=== PATIENT | male | born 1945 | race Caucasian/White ===

== ENCOUNTER 2018-08-14 15:25 | Emergency (ER) | payer MEDICARE, OTHER ==
[~2018-08-14] VITALS: Ht 182.9 cm; Wt 88.6 kg
[2018-08-14 15:32] VITALS: BP 198/97
[2018-08-14 16:12] LABS: BASOPHILS # (AUTO) 0.1 X10'3 (0-0.2); BASOPHILS % (AUTO) 1.2 % (0-1); EOSINOPHILS # (AUTO) 0.3 X10'3 (0-0.9); EOSINOPHILS % (AUTO) 3.9 % (0-6); HEMATOCRIT 42.1 % (42.0-52.0); HEMOGLOBIN 14.3 g/dl (14.0-17.9); LYMPHOCYTES # (AUTO) 1.5 X10'3 (1.1-4.8); LYMPHOCYTES % (AUTO) 19.4 % (21-51); MEAN CORPUSCULAR HEMOGLOBIN 29.3 PG (27.0-31.0); MEAN CORPUSCULAR VOLUME 86.2 FL (78-98); MEAN PLATELET VOLUME 8.9 FL (7.4-10.4); MONOCYTES # (AUTO) 0.7 X10'3 (0-0.9); MONOCYTES % (AUTO) 8.8 % (2-12); NEUTROPHILS # (AUTO) 5.1 X10'3 (1.8-7.7); NEUTROPHILS % (AUTO) 66.7 % (42-75); PLATELET COUNT 175 X10'3 (140-440); RED BLOOD COUNT 4.89 X10'6 (4.70-6.10); RED CELL DISTRIBUTION WIDTH 13.4 % (11.5-14.5); WHITE BLOOD COUNT 7.7 X10'3 (4.5-11.0)
[2018-08-14 16:32] LABS: PARTIAL THROMBOPLASTIN TIME 24 SECONDS (22-32); PROTHROMBIN TIME 9.8 SECONDS (9.0-12.0)
[2018-08-14 17:12] LABS: ALANINE AMINOTRANSFERASE 80 U/L (12-78); ALBUMIN 3.6 G/DL (3.4-5.0); ALBUMIN/GLOBULIN RATIO 0.8 (1.1-1.5); ALKALINE PHOSPHATASE 129 IU/L (46-116); ANION GAP 10 (8-16); ASPARTATE AMINO TRANSFERASE 51 U/L (10-37); BILIRUBIN,TOTAL 0.5 MG/DL (0.1-1.0); BLOOD UREA NITROGEN 20 MG/DL (7-18); BUN/CREATININE RATIO 16.1 (5.4-32.0); CALCIUM 8.8 MG/DL (8.5-10.1); CHLORIDE 105 MMOL/L (99-107); CREATININE 1.24 MG/DL (0.60-1.10); GLUCOSE 114 MG/DL (70-104); POTASSIUM 4.3 MMOL/L (3.5-5.1); SODIUM 142 MMOL/L (135-145); TOTAL CARBON DIOXIDE 26.9 MMOL/L (24-32); eGFR 57 ML/MIN
[2018-08-14] MEDS ORDERED: LISI-600 PO (17:56)
[2018-08-14] MEDS ORDERED: HYDR25TA4 PO (17:56)
== END 2018-08-14 20:08 | disposition home or self-care (01) ==
LOC: ER 15:26
DX: I10 Essential (primary) hypertension (principal); R01.1 Cardiac murmur, unspecified; Z86.73 Personal history of transient ischemic attack (TIA), and cerebral infarction without residual deficits; Z79.899 Other long term (current) drug therapy; Z98.890 Other specified postprocedural states; Z95.4 Presence of other heart-valve replacement
CPT/HCPCS: 36415; 71046; 80053; 83880; 84484; 85025; 85610; 85730; 93005; 99284

== ENCOUNTER 2022-05-07 09:55 | Emergency (ER) | payer MEDICARE ==
[~2022-05-07] VITALS: Ht 182.9 cm; Wt 75.0 kg
[~2022-05-07 09:55] MED LIST: HYDR-4383 PO; HYDR25TA4 PO
[2022-05-07 10:00] VITALS: BP 130/90
[2022-05-07 10:30] LABS: CLARITY,URINE SLIGHTLY CLOUDY (Clear); COLOR,URINE YELLOW (Yellow); GLUCOSE, URINE NEGATIVE (Neg); KETONES,URINE NEGATIVE (Neg); LEUKOCYTE ESTERASE ,URINE NEGATIVE (Neg); NITRITES, URINE NEGATIVE (Neg); OCCULT BLOOD,URINE NEGATIVE (Neg); PH,URINE 5.5 (4.8-8.0); PROTEIN,URINE NEGATIVE (Neg); UROBILINOGEN,URINE 0.2 E.U/dL (0.2-1.0)
[2022-05-07 10:37] LABS: SQUAMOUS EPITHELIAL CELL,UR FEW /LPF (FEW); UA COLLECTION TYPE NON-SPECIFIED
[2022-05-07 10:38] LABS: BACTERIA,URINE FEW /HPF (Neg); HYALINE CASTS 0-3 /LPF (NEGATIVE); MUCUS STRANDS MANY /LPF (Neg); RBC,URINE 0-2 /HPF (0-2); SPERM FEW /HPF (NEGATIVE); WBC,URINE 0-4 /HPF (0-4)
[2022-05-07 11:01] LABS: HEMATOCRIT 36.6 % (42.0-52.0); HEMOGLOBIN 12.8 g/dl (14.0-17.9); MEAN CORPUSCULAR HEMOGLOBIN 29.5 PG (27.0-31.0); MEAN CORPUSCULAR HGB CONC 34.9 g/dL (33.0-36.5); MEAN CORPUSCULAR VOLUME 84.4 FL (78-98); RED BLOOD COUNT 4.34 X10'6 (4.70-6.10); WHITE BLOOD COUNT 8.2 X10'3 (4.5-11.0)
[2022-05-07 11:02] LABS: BASOPHILS # (AUTO) 0.1 X10'3 (0-0.2); BASOPHILS % (AUTO) 0.6 % (0-1); EOSINOPHILS # (AUTO) 0.2 X10'3 (0-0.9); EOSINOPHILS % (AUTO) 2.4 % (0-6); LYMPHOCYTES # (AUTO) 1.5 X10'3 (1.1-4.8); LYMPHOCYTES % (AUTO) 18.5 % (21-51); MEAN PLATELET VOLUME 7.7 FL (7.4-10.4); MONOCYTES # (AUTO) 0.8 X10'3 (0-0.9); MONOCYTES % (AUTO) 9.5 % (2-12); NEUTROPHILS # (AUTO) 5.6 X10'3 (1.8-7.7); PLATELET COUNT 174 X10'3 (140-440); RED CELL DISTRIBUTION WIDTH 14.1 % (11.5-14.5)
[2022-05-07 11:16] LABS: GLUCOSE 100 MG/DL (70-104)
[2022-05-07 11:17] LABS: ALANINE AMINOTRANSFERASE 33 U/L (12-78); ALBUMIN/GLOBULIN RATIO 1.1 (1.1-1.5); ALKALINE PHOSPHATASE 106 IU/L (46-116); ANION GAP 7 (8-16); ASPARTATE AMINO TRANSFERASE 29 U/L (10-37); BILIRUBIN,TOTAL 0.9 MG/DL (0.1-1.0); BLOOD UREA NITROGEN 20 MG/DL (7-18); BUN/CREATININE RATIO 23.3 (5.4-32.0); CALCIUM 9.1 MG/DL (8.5-10.1); CHLORIDE 104 MMOL/L (99-107); CREATININE 0.86 MG/DL (0.60-1.10); POTASSIUM 3.9 MMOL/L (3.5-5.1); SODIUM 141 MMOL/L (135-145); TOTAL PROTEIN 7.8 G/DL (6.4-8.2); eGFR 86 ML/MIN
== END 2022-05-07 12:07 | disposition home or self-care (01) ==
LOC: ER 09:56
DX: Z00.00 Encounter for general adult medical examination without abnormal findings (principal); I10 Essential (primary) hypertension
CPT/HCPCS: 36415; 80053; 81001; 85025; 99283

== ENCOUNTER 2023-02-17 14:28 | Emergency (ER) | payer MEDICARE ==
[~2023-02-17] VITALS: Ht 182.9 cm; Wt 82.7 kg
[2023-02-17 14:48] LABS: BASOPHILS # (AUTO) 0.1 X10'3 (0-0.2); BASOPHILS % (AUTO) 0.9 % (0-1); EOSINOPHILS # (AUTO) 0.2 X10'3 (0-0.9); EOSINOPHILS % (AUTO) 3.3 % (0-6); HEMATOCRIT 36.7 % (42.0-52.0); HEMOGLOBIN 11.9 g/dl (14.0-17.9); LYMPHOCYTES # (AUTO) 1.1 X10'3 (1.1-4.8); LYMPHOCYTES % (AUTO) 16.4 % (21-51); MEAN CORPUSCULAR HEMOGLOBIN 27.1 PG (27.0-31.0); MEAN CORPUSCULAR HGB CONC 32.5 g/dL (33.0-36.5); MEAN CORPUSCULAR VOLUME 83.2 FL (78-98); MEAN PLATELET VOLUME 8.2 FL (7.4-10.4); MONOCYTES # (AUTO) 0.6 X10'3 (0-0.9); NEUTROPHILS # (AUTO) 4.9 X10'3 (1.8-7.7); NEUTROPHILS % (AUTO) 70.4 % (42-75); PLATELET COUNT 155 X10'3 (140-440); RED BLOOD COUNT 4.41 X10'6 (4.70-6.10); RED CELL DISTRIBUTION WIDTH 15.6 % (11.5-14.5)
[2023-02-17 14:58] LABS: ALANINE AMINOTRANSFERASE 36 U/L (12-78); ALBUMIN 3.4 G/DL (3.4-5.0); ALBUMIN/GLOBULIN RATIO 0.9 (1.1-1.5); ALKALINE PHOSPHATASE 120 IU/L (46-116); ANION GAP 9 (8-16); ASPARTATE AMINO TRANSFERASE 26 U/L (10-37); BILIRUBIN,TOTAL 0.5 MG/DL (0.1-1.0); BLOOD UREA NITROGEN 21 MG/DL (7-18); BUN/CREATININE RATIO 21.6 (10.0-20.0); CALCIUM 8.3 MG/DL (8.5-10.1); CHLORIDE 108 MMOL/L (99-107); CREATININE 0.97 MG/DL (0.60-1.10); GLUCOSE 140 MG/DL (70-104); POTASSIUM 4.1 MMOL/L (3.5-5.1); SODIUM 142 MMOL/L (135-145); TOTAL CARBON DIOXIDE 25.5 MMOL/L (24-32); TOTAL PROTEIN 7.1 G/DL (6.4-8.2); eCRCL 70 ML/MIN; eGFR 75 ML/MIN
[2023-02-17 15:06] LABS: PRO BRAIN NATRIURETIC PEPTIDE 758 PG/ML (0-450)
[2023-02-17 15:48] VITALS: BP 184/90; RESP 13; O2SAT 99
[2023-02-17] MEDS ORDERED: naproxen 500mg tablet PO ONE (16:50)
[2023-02-17] MEDS ORDERED: HYDROcodone/acetaminophen 5mg/325mg tablet PO ONE (16:50)
[2023-02-17] MEDS ORDERED: LISI5TAB22 PO (17:08)
[2023-02-17] MEDS ORDERED: HYDR25TA4 PO (17:08)
[2023-02-17] MEDS ORDERED: lisinopril 10 MG tablet PO ONE (17:10)
[2023-02-17 17:21] VITALS: PULSE 60
== END 2023-02-17 16:00 | disposition home or self-care (01) ==
LOC: ER 14:28
DX: M25.512 Pain in left shoulder (principal); R07.89 Other chest pain; I10 Essential (primary) hypertension; M19.90 Unspecified osteoarthritis, unspecified site; I25.2 Old myocardial infarction; Z86.73 Personal history of transient ischemic attack (TIA), and cerebral infarction without residual deficits; Z72.89 Other problems related to lifestyle; Z79.899 Other long term (current) drug therapy
CPT/HCPCS: 36415; 71045; 73030; 80053; 83880; 84484; 85025; 93005; 99285

== ENCOUNTER 2023-02-18 12:57 | Emergency (ER) | payer MEDICARE ==
[~2023-02-18 12:57] MED LIST changes: +LISI5TAB22 PO
--- NOTE | 2023-02-18 13:02 | NUR ---
CALLED FOR PT NO ANSWER IN LOBBY WALKED OUTSIDE CALLED FOR PT NO ANSWER NO PERSONS NOTED WITHIN VISUAL FIELD OF MAIN ENTRANCE. SECURITY STATED PT LEFT IMMEDIATELY AFTER CHECK IN.
== END 2023-02-18 13:21 | disposition left against medical advice (07) ==
LOC: ER 12:57
DX: Z00.00 Encounter for general adult medical examination without abnormal findings (principal); Z53.21 Procedure and treatment not carried out due to patient leaving prior to being seen by health care provider

== ENCOUNTER 2023-04-12 11:13 | Inpatient (IN) | payer MEDICARE ==
[~2023-04-12] VITALS: Ht 182.9 cm; Wt 84.1 kg
--- NOTE | 2023-04-12 11:21 | NUR ---
EMS report given to Dr Godinez by this RN. Primary RN Danika howard.
[2023-04-12] MEDS ORDERED: normal saline 1000ML IV soln IVB ONE (11:25)
[2023-04-12] MEDS ORDERED: CefTRIAXone 2gm/D5W 50ml BAG 50 ML IV ONE (11:35)
[2023-04-12 12:03] LABS: BASOPHILS % (AUTO) 0.1 % (0-1); EOSINOPHILS % (AUTO) 0 % (0-6); HEMOGLOBIN 12.1 g/dl (14.0-17.9); LYMPHOCYTES # (AUTO) 0.3 X10'3 (1.1-4.8); LYMPHOCYTES % (AUTO) 2.5 % (21-51); MEAN CORPUSCULAR HEMOGLOBIN 28.3 PG (27.0-31.0); MEAN CORPUSCULAR HGB CONC 33.7 g/dL (33.0-36.5); MEAN CORPUSCULAR VOLUME 84.1 FL (78-98); MEAN PLATELET VOLUME 8.4 FL (7.4-10.4); MONOCYTES % (AUTO) 8.1 % (2-12); NEUTROPHILS # (AUTO) 10.5 X10'3 (1.8-7.7); NEUTROPHILS % (AUTO) 89.3 % (42-75); PLATELET COUNT 156 X10'3 (140-440); RED BLOOD COUNT 4.28 X10'6 (4.70-6.10); RED CELL DISTRIBUTION WIDTH 15.5 % (11.5-14.5); WHITE BLOOD COUNT 11.8 X10'3 (4.5-11.0)
[2023-04-12 12:19] LABS: ALANINE AMINOTRANSFERASE 47 U/L (12-78); ALBUMIN 2.7 G/DL (3.4-5.0); ALBUMIN/GLOBULIN RATIO 0.7 (1.1-1.5); ALKALINE PHOSPHATASE 56 IU/L (46-116); ANION GAP 8 (8-16); ASPARTATE AMINO TRANSFERASE 96 U/L (10-37); BILIRUBIN,TOTAL 2.4 MG/DL (0.1-1.0); BLOOD UREA NITROGEN 28 MG/DL (7-18); BUN/CREATININE RATIO 19.9 (10.0-20.0); CALCIUM 8.3 MG/DL (8.5-10.1); CHLORIDE 99 MMOL/L (99-107); CREATININE 1.41 MG/DL (0.60-1.10); GLUCOSE 114 MG/DL (70-104); POTASSIUM 3.6 MMOL/L (3.5-5.1); SODIUM 134 MMOL/L (135-145); TOTAL CARBON DIOXIDE 27.1 MMOL/L (24-32); TOTAL PROTEIN 6.6 G/DL (6.4-8.2); eCRCL 48 ML/MIN; eGFR 49 ML/MIN
[2023-04-12] MEDS ORDERED: LIDOcaine 2% 10ml TOPICAL JELLY (Urojet) TP ONE (14:45)
[2023-04-12] MEDS ORDERED: LidoCAINE 2% Topical Jelly 11mL syringe TOP ONE ×2 (14:50→15:05)
[2023-04-12] MEDS ORDERED: magnesium Cl slow-release 64mg tablet PO PRN (15:05)
[2023-04-12] MEDS ORDERED: dextrose 50%-water 50ml dispensing syringe IV PRN (15:05)
[2023-04-12] MEDS ORDERED: potassium Cl 40MEQ/1/2NS 520ml 520 ML IV PRN (15:05)
[2023-04-12] MEDS ORDERED: haloperidol 5mg tablet PO PRN (15:05)
[2023-04-12] MEDS ORDERED: ondansetron/PF 4mg/2ml inj IV PRN (15:05)
--- NOTE | 2023-04-12 15:20 | NUR ---
PT REQUESTING NOT TO HAVE HAYES CATHETER PLACED AT THIS TIME.
[2023-04-12 15:32] LABS: BILIRUBIN,URINE NEGATIVE (Neg); CLARITY,URINE CLOUDY (Clear); COLOR,URINE YELLOW (Yellow); GLUCOSE, URINE NEGATIVE (Neg); KETONES,URINE TRACE mg/dl (Neg); LEUKOCYTE ESTERASE ,URINE NEGATIVE (Neg); NITRITES, URINE NEGATIVE (Neg); OCCULT BLOOD,URINE MODERATE (Neg); PH,URINE 5.5 (4.8-8.0); PROTEIN,URINE 30 mg/dl (Neg)
[2023-04-12 15:35] LABS: UA COLLECTION TYPE URINAL
[2023-04-12 15:40] LABS: SQUAMOUS EPITHELIAL CELL,UR FEW /LPF (FEW)
[2023-04-12 15:41] LABS: BACTERIA,URINE 1+ /HPF (Neg); RBC,URINE 0-2 /HPF (0-2); WBC,URINE 0-4 /HPF (0-4)
[2023-04-12 15:42] LABS: AMORPHOUS URATES 2+
[2023-04-12] MEDS: normal saline 1000ml 1,000 ML IV SCH (16:22)
[2023-04-12] MEDS ORDERED: lisinopril 10 MG tablet PO ONE (18:45)
[2023-04-12] MEDS ORDERED: tamsulosin 0.4mg capsule PO SCH (18:45)
--- NOTE | 2023-04-12 18:45 | NUR ---
Dr. Cruz at bedside aware of BP 193/100, Temp of 101.6, and 110 HR. Verbal orders given.
[2023-04-12] MEDS: acetaminophen 325mg tablet PO PRN (18:46)
[2023-04-12] MEDS: tamsulosin 0.4mg capsule PO SCH (21:00)
[2023-04-12] MEDS: thiamine 100mg/ml 2ml inj. IV SCH (21:16)
[2023-04-13] MEDS: normal saline 1000ml 1,000 ML IV SCH ×3 (00:55→20:12)
[2023-04-13] MEDS: hydrALAZINE 25 MG tablet PO SCH ×4 (00:55→23:27)
[2023-04-13] MEDS: acetaminophen 325mg tablet PO PRN ×2 (01:05→17:23)
[2023-04-13 04:08] LABS: ALANINE AMINOTRANSFERASE 36 U/L (12-78); ALBUMIN 2.2 G/DL (3.4-5.0); ALBUMIN/GLOBULIN RATIO 0.6 (1.1-1.5); ALKALINE PHOSPHATASE 44 IU/L (46-116); ANION GAP 7 (8-16); ASPARTATE AMINO TRANSFERASE 58 U/L (10-37); BLOOD UREA NITROGEN 26 MG/DL (7-18); BUN/CREATININE RATIO 26.3 (10.0-20.0); CALCIUM 7.7 MG/DL (8.5-10.1); CHLORIDE 103 MMOL/L (99-107); CREATININE 0.99 MG/DL (0.60-1.10); GLUCOSE 103 MG/DL (70-104); SODIUM 134 MMOL/L (135-145); TOTAL CARBON DIOXIDE 24.1 MMOL/L (24-32); TOTAL PROTEIN 5.6 G/DL (6.4-8.2); eCRCL 69 ML/MIN; eGFR 73 ML/MIN
[2023-04-13 04:10] LABS: BASOPHILS % (AUTO) 0.3 % (0-1); EOSINOPHILS % (AUTO) 0.1 % (0-6); HEMATOCRIT 32.6 % (42.0-52.0); HEMOGLOBIN 11.1 g/dl (14.0-17.9); LYMPHOCYTES # (AUTO) 0.3 X10'3 (1.1-4.8); LYMPHOCYTES % (AUTO) 3.8 % (21-51); MEAN CORPUSCULAR HEMOGLOBIN 28.3 PG (27.0-31.0); MEAN CORPUSCULAR HGB CONC 34.2 g/dL (33.0-36.5); MEAN CORPUSCULAR VOLUME 82.7 FL (78-98); MEAN PLATELET VOLUME 8.2 FL (7.4-10.4); MONOCYTES # (AUTO) 0.6 X10'3 (0-0.9); MONOCYTES % (AUTO) 7.6 % (2-12); NEUTROPHILS # (AUTO) 6.7 X10'3 (1.8-7.7); NEUTROPHILS % (AUTO) 88.2 % (42-75); PLATELET COUNT 135 X10'3 (140-440); RED BLOOD COUNT 3.94 X10'6 (4.70-6.10); RED CELL DISTRIBUTION WIDTH 15.5 % (11.5-14.5); WHITE BLOOD COUNT 7.6 X10'3 (4.5-11.0)
[2023-04-13] MEDS: potassium Cl 20 mEq SR tablet PO PRN ×4 (04:48→17:24)
[2023-04-13] MEDS ORDERED: lisinopril 10 MG tablet PO SCH (08:00)
[2023-04-13] MEDS: CefTRIAXone/D5W-Rocephin 1gm 50 ML IV SCH (09:09)
[2023-04-13] MEDS: thiamine 100mg/ml 2ml inj. IV SCH ×3 (09:09→20:51)
[2023-04-13] MEDS: enoxaparin 40mg/0.4ml syringe SUBCUT SCH (09:12)
--- NOTE | 2023-04-13 09:34 | NUR ---
Report given to CELIA Tovar, pt assigned room 9762Y
[2023-04-13 10:30] VITALS: BP 127/71; PULSE 86; RESP 16; TEMP 99.7; O2SAT 96
[2023-04-13] MEDS: folic acid 1mg/0.2ml inj IV SCH (10:38)
[2023-04-13 12:31] VITALS: BP 147/74; PULSE 94; RESP 22; TEMP 99.9; O2SAT 95
[2023-04-13 12:40] VITALS: RESP 26; O2SAT 95
--- NOTE | 2023-04-13 13:18 | NUR ---
Patient states last BM was 04/12, bout of fecal incontinence in ED. Addendum: 04/13/23 at 1331 by Jasvir ARRIETA Amended: Links added.
--- NOTE | 2023-04-13 14:39 | NUR ---
Patient ate 100% of /2 cup keny denton salad. 16 gm carbohydrates in salad. Addendum: 04/13/23 at 1440 by Jasvir ARRIETA Amended: Links added.
[2023-04-13] MEDS ORDERED: NO HOME MEDS (15:30)
[2023-04-13 18:00] VITALS: BP 182/85; PULSE 111; RESP 20; TEMP 100.6; O2SAT 91
[2023-04-13] MEDS ORDERED: hydrALAZINE 20mg/ml inj. IV PRN (19:45)
[2023-04-13] MEDS: tamsulosin 0.4mg capsule PO SCH (20:05)
[2023-04-13] MEDS: lisinopril 10 MG tablet PO SCH ×2 (20:05→20:06)
[2023-04-13 22:07] VITALS: BP 138/78; PULSE 89; RESP 16; TEMP 98.6; O2SAT 95
--- NOTE | 2023-04-14 06:27 | NUR ---
Problems reprioritized. Patient report given, questions answered & plan of care reviewed with Ovi YANG. Addendum: 04/14/23 at 0627 by Madisyn Gong RN Amended: Links added.
--- NOTE | 2023-04-14 06:28 | NUR ---
Patient in room ORTHO 4009. I have received report from viola YANG and had the opportunity to ask questions and assume patient care.
[2023-04-14] MEDS: normal saline 1000ml 1,000 ML IV SCH ×2 (07:05→17:26)
[2023-04-14 07:41] LABS: BASOPHILS % (AUTO) 0.2 % (0-1); EOSINOPHILS % (AUTO) 0 % (0-6); HEMATOCRIT 33.6 % (42.0-52.0); HEMOGLOBIN 11.3 g/dl (14.0-17.9); LYMPHOCYTES # (AUTO) 0.4 X10'3 (1.1-4.8); LYMPHOCYTES % (AUTO) 6.1 % (21-51); MEAN CORPUSCULAR HEMOGLOBIN 28.3 PG (27.0-31.0); MEAN CORPUSCULAR HGB CONC 33.7 g/dL (33.0-36.5); MEAN CORPUSCULAR VOLUME 84.1 FL (78-98); MEAN PLATELET VOLUME 8.2 FL (7.4-10.4); MONOCYTES # (AUTO) 0.6 X10'3 (0-0.9); MONOCYTES % (AUTO) 8.6 % (2-12); NEUTROPHILS # (AUTO) 6.2 X10'3 (1.8-7.7); NEUTROPHILS % (AUTO) 85.1 % (42-75); PLATELET COUNT 138 X10'3 (140-440); RED BLOOD COUNT 3.99 X10'6 (4.70-6.10); RED CELL DISTRIBUTION WIDTH 15.5 % (11.5-14.5); WHITE BLOOD COUNT 7.3 X10'3 (4.5-11.0)
[2023-04-14 07:59] LABS: ALANINE AMINOTRANSFERASE 39 U/L (12-78); ALBUMIN/GLOBULIN RATIO 0.6 (1.1-1.5); ALKALINE PHOSPHATASE 44 IU/L (46-116); ANION GAP 7 (8-16); ASPARTATE AMINO TRANSFERASE 54 U/L (10-37); BILIRUBIN,TOTAL 0.8 MG/DL (0.1-1.0); BLOOD UREA NITROGEN 13 MG/DL (7-18); BUN/CREATININE RATIO 16.3 (10.0-20.0); CALCIUM 7.9 MG/DL (8.5-10.1); CHLORIDE 101 MMOL/L (99-107); GLUCOSE 92 MG/DL (70-104); POTASSIUM 3.9 MMOL/L (3.5-5.1); SODIUM 132 MMOL/L (135-145); TOTAL CARBON DIOXIDE 24.5 MMOL/L (24-32); TOTAL PROTEIN 5.6 G/DL (6.4-8.2); eCRCL 85 ML/MIN; eGFR > 90 ML/MIN
[2023-04-14 08:00] VITALS: BP 168/89; PULSE 104; RESP 16; TEMP 100; O2SAT 93
[2023-04-14] MEDS: thiamine 100mg/ml 2ml inj. IV SCH ×3 (08:27→19:04)
[2023-04-14] MEDS: enoxaparin 40mg/0.4ml syringe SUBCUT SCH (08:27)
[2023-04-14] MEDS: folic acid 1mg/0.2ml inj IV SCH (08:27)
[2023-04-14] MEDS: lisinopril 10 MG tablet PO SCH ×2 (08:28→19:08)
[2023-04-14] MEDS: hydrALAZINE 25 MG tablet PO SCH ×2 (08:29→16:22)
[2023-04-14] MEDS: CefTRIAXone/D5W-Rocephin 1gm 50 ML IV SCH (08:29)
[2023-04-14] MEDS: LORazepam 2 mg/ml vial IV PRN ×2 (08:58→15:51)
[2023-04-14 09:34] VITALS: BP 143/76; PULSE 108; RESP 18; TEMP 98.9; O2SAT 95
--- NOTE | 2023-04-14 12:49 | NUR ---
PT HAYES REMOVED PER MD ORDERS. PT. TOLERATED WELL. 2000ML DRAINED. WILL CONTINUE TO MONITOR FOR URINE OUTPUT
[2023-04-14 12:51] VITALS: RESP 18; O2SAT 95
[2023-04-14] MEDS: acetaminophen 325mg tablet PO PRN (17:23)
[2023-04-14 18:00] VITALS: BP 166/89; PULSE 99; RESP 16; TEMP 101.6; O2SAT 95
--- NOTE | 2023-04-14 18:32 | NUR ---
Problems reprioritized. Patient report given TO MAAME YANG, questions answered & plan of care reviewed with .
[2023-04-14] MEDS: tamsulosin 0.4mg capsule PO SCH (19:09)
[2023-04-14 20:00] VITALS: RESP 16; O2SAT 95
[2023-04-14 22:00] VITALS: BP 149/83; PULSE 70; RESP 16; TEMP 98.9; O2SAT 94
[2023-04-15] MEDS: hydrALAZINE 25 MG tablet PO SCH ×3 (00:52→15:42)
[2023-04-15] MEDS: normal saline 1000ml 1,000 ML IV SCH (03:42)
[2023-04-15 06:08] LABS: BASOPHILS % (AUTO) 0.5 % (0-1); EOSINOPHILS % (AUTO) 0.2 % (0-6); HEMATOCRIT 32.3 % (42.0-52.0); LYMPHOCYTES # (AUTO) 0.4 X10'3 (1.1-4.8); LYMPHOCYTES % (AUTO) 6.6 % (21-51); MEAN CORPUSCULAR HEMOGLOBIN 28.2 PG (27.0-31.0); MEAN CORPUSCULAR HGB CONC 33.9 g/dL (33.0-36.5); MEAN CORPUSCULAR VOLUME 83.3 FL (78-98); MEAN PLATELET VOLUME 7.9 FL (7.4-10.4); MONOCYTES # (AUTO) 0.5 X10'3 (0-0.9); MONOCYTES % (AUTO) 7.9 % (2-12); NEUTROPHILS # (AUTO) 5.6 X10'3 (1.8-7.7); NEUTROPHILS % (AUTO) 84.8 % (42-75); PLATELET COUNT 146 X10'3 (140-440); RED BLOOD COUNT 3.88 X10'6 (4.70-6.10); RED CELL DISTRIBUTION WIDTH 15.6 % (11.5-14.5); WHITE BLOOD COUNT 6.6 X10'3 (4.5-11.0)
[2023-04-15 06:18] LABS: ALANINE AMINOTRANSFERASE 30 U/L (12-78); ALBUMIN/GLOBULIN RATIO 0.6 (1.1-1.5); ALKALINE PHOSPHATASE 53 IU/L (46-116); ANION GAP 5 (8-16); ASPARTATE AMINO TRANSFERASE 44 U/L (10-37); BILIRUBIN,TOTAL 0.7 MG/DL (0.1-1.0); BLOOD UREA NITROGEN 11 MG/DL (7-18); BUN/CREATININE RATIO 14.5 (10.0-20.0); CALCIUM 7.9 MG/DL (8.5-10.1); CHLORIDE 101 MMOL/L (99-107); CREATININE 0.76 MG/DL (0.60-1.10); GLUCOSE 92 MG/DL (70-104); POTASSIUM 3.3 MMOL/L (3.5-5.1); SODIUM 130 MMOL/L (135-145); TOTAL CARBON DIOXIDE 23.9 MMOL/L (24-32); TOTAL PROTEIN 5.6 G/DL (6.4-8.2); eCRCL 89 ML/MIN; eGFR > 90 ML/MIN
--- NOTE | 2023-04-15 06:24 | NUR ---
Patient in room ORTHO 4009. I have received report from MAAME YANG and had the opportunity to ask questions and assume patient care.
--- NOTE | 2023-04-15 06:26 | NUR ---
Problems reprioritized. Patient report given, questions answered & plan of care reviewed with YAHIR YANG. Addendum: 04/15/23 at 0626 by Madisyn Gong RN Amended: Links added.
[2023-04-15 06:41] VITALS: BP 167/83; PULSE 78; RESP 16; TEMP 99.8; O2SAT 94
[2023-04-15] MEDS: thiamine 100mg/ml 2ml inj. IV SCH ×2 (07:47→12:18)
[2023-04-15] MEDS: lisinopril 10 MG tablet PO SCH ×2 (07:47→22:25)
[2023-04-15] MEDS: enoxaparin 40mg/0.4ml syringe SUBCUT SCH (07:47)
[2023-04-15] MEDS: amLODIPine 5mg tablet PO SCH (07:48)
[2023-04-15] MEDS: CefTRIAXone/D5W-Rocephin 1gm 50 ML IV SCH (07:48)
[2023-04-15] MEDS: LORazepam 2 mg/ml vial IV PRN ×2 (07:56→12:18)
[2023-04-15] MEDS: folic acid 1mg/0.2ml inj IV SCH (07:56)
[2023-04-15] MEDS: potassium Cl 20 mEq SR tablet PO PRN ×3 (09:16→22:19)
[2023-04-15 10:00] VITALS: BP 142/77; PULSE 107; RESP 20; TEMP 98.6; O2SAT 93
[2023-04-15 10:57] VITALS: RESP 18; O2SAT 93
[2023-04-15] MEDS: acetaminophen 325mg tablet PO PRN (16:37)
[2023-04-15] MEDS ORDERED: LORazepam 2 mg/ml vial IV ONE (17:00)
--- NOTE | 2023-04-15 17:00 | NUR ---
MD RESIDENT GAVE ME order over phone for Ativan 2mg. I PUT IN THE ORDER AND THE ORDER SOURCE ONLY GIVES ME THE WRITTEN OPTION, SO I PUT IN THE WRITTEN OPTION.
[2023-04-15 18:00] VITALS: BP 185/93; PULSE 104; RESP 18; TEMP 102.4; O2SAT 96
--- NOTE | 2023-04-15 18:48 | NUR ---
Problems reprioritized. Patient report given TO KATIE YANG, questions answered & plan of care reviewed with .
[2023-04-15 22:00] VITALS: BP 125/68; PULSE 89; RESP 20; TEMP 99.1; O2SAT 95
[2023-04-15] MEDS: tamsulosin 0.4mg capsule PO SCH (22:19)
[2023-04-15] MEDS: HYDROcodone/acetaminophen 5mg/325mg tablet PO PRN (22:24)
--- NOTE | 2023-04-15 22:58 | NUR ---
reported to CELIA Summers. noted pt needs complete assessment. incont urine.
[2023-04-15 23:30] VITALS: RESP 20; O2SAT 95
[2023-04-16] MEDS: hydrALAZINE 25 MG tablet PO SCH ×3 (00:06→16:54)
[2023-04-16 06:00] VITALS: BP 133/71; PULSE 85; RESP 26; TEMP 99; O2SAT 94
--- NOTE | 2023-04-16 06:40 | NUR ---
Patient in room ORTHO 4009. I have received report from CELIA Summers and had the opportunity to ask questions and assume patient care.
[2023-04-16 07:07] LABS: ALANINE AMINOTRANSFERASE 28 U/L (12-78); ALBUMIN 1.8 G/DL (3.4-5.0); ALBUMIN/GLOBULIN RATIO 0.5 (1.1-1.5); ALKALINE PHOSPHATASE 55 IU/L (46-116); ANION GAP 4 (8-16); ASPARTATE AMINO TRANSFERASE 35 U/L (10-37); BILIRUBIN,TOTAL 0.7 MG/DL (0.1-1.0); BLOOD UREA NITROGEN 13 MG/DL (7-18); BUN/CREATININE RATIO 16.3 (10.0-20.0); CALCIUM 7.8 MG/DL (8.5-10.1); CHLORIDE 101 MMOL/L (99-107); GLUCOSE 86 MG/DL (70-104); POTASSIUM 3.4 MMOL/L (3.5-5.1); SODIUM 132 MMOL/L (135-145); TOTAL CARBON DIOXIDE 26.6 MMOL/L (24-32); TOTAL PROTEIN 5.4 G/DL (6.4-8.2); eCRCL 85 ML/MIN; eGFR > 90 ML/MIN
[2023-04-16 07:22] LABS: BASOPHILS % (AUTO) 0.5 % (0-1); EOSINOPHILS % (AUTO) 0.8 % (0-6); HEMATOCRIT 32.4 % (42.0-52.0); LYMPHOCYTES # (AUTO) 0.5 X10'3 (1.1-4.8); LYMPHOCYTES % (AUTO) 7.9 % (21-51); MEAN CORPUSCULAR HEMOGLOBIN 28.2 PG (27.0-31.0); MEAN PLATELET VOLUME 8.1 FL (7.4-10.4); MONOCYTES # (AUTO) 0.6 X10'3 (0-0.9); MONOCYTES % (AUTO) 9.7 % (2-12); NEUTROPHILS # (AUTO) 5.1 X10'3 (1.8-7.7); NEUTROPHILS % (AUTO) 81.1 % (42-75); PLATELET COUNT 164 X10'3 (140-440); RED CELL DISTRIBUTION WIDTH 15.8 % (11.5-14.5); WHITE BLOOD COUNT 6.3 X10'3 (4.5-11.0)
[2023-04-16] MEDS: CefTRIAXone/D5W-Rocephin 1gm 50 ML IV SCH (07:37)
[2023-04-16] MEDS: enoxaparin 40mg/0.4ml syringe SUBCUT SCH (07:37)
[2023-04-16] MEDS: lisinopril 10 MG tablet PO SCH ×2 (07:38→20:44)
[2023-04-16] MEDS: potassium Cl 20 mEq SR tablet PO PRN ×3 (07:39→17:37)
[2023-04-16] MEDS: amLODIPine 5mg tablet PO SCH (07:39)
[2023-04-16] MEDS: thiamine 100mg tablet PO SCH (07:39)
[2023-04-16] MEDS: HYDROcodone/acetaminophen 5mg/325mg tablet PO PRN ×2 (07:55→12:22)
--- NOTE | 2023-04-16 08:09 | NUR ---
Pt left AMA, Pt was upset and stated that he " needed fresh air and a cigarette". He said he was done being at the hospital and was going to leave. He was cursing and getting loud so I called security. I was able to calm him enough to remove his IV and have him sign the paperwork for leaving AMA. Addendum: 04/16/23 at 0856 by Charisma Torres RN INCORRECT PLACEMENT, NOTE WILL BE PLACED ON CORRECT PATIENT
[2023-04-16 10:46] VITALS: BP 141/80; PULSE 103; RESP 16; TEMP 100; O2SAT 96
--- NOTE | 2023-04-16 11:06 | NUR ---
Malnutrition Consult: Pt admit DX sepsis, UTI, HTN, CAD, hypokalemia, and etoh/drug withdrawal per EMR. PO ~31% avg regular diet first 3 days not meeting estimated needs. Noted pt AOx2/confused unsure of wt loss per EMR; possibly impacting PO trends. Pt w/ mild weakness, no edema/wounds, and pending scaled wt this admit though current reported wt 84.09kg up from prior 05/08/22 scaled wt 75kg. Pt lacks minimum two malnutrition criteria at this time. RD notified MD recommends Ensure Enlive TIDWM to assist meeting needs. Receiving routine thiamine and folic acid for etoh w/ LBM 04/14 per EMR. Will monitor for further PO trends and nutrition intervention needs. Rec: 1. continue regular diet; encourage PO 2. Ensure Enlive TIDWM; pending physician verification in EMR 3. routine bowel care 4. scaled wt this admit; subsequent weekly wt Addendum: 04/16/23 at [address] Rec: 1. continue regular diet; encourage PO 2. Ensure Enlive TIDWM; pending physician verification in EMR 3. routine thiamine, folic acid for etoh hx 4. routine bowel care 5. scaled wt this admit; subsequent weekly wt Addendum: 04/16/23 at [address] Amended: Links added.
[2023-04-16] MEDS: lactose-reduced food (Ensure Enlive) - 237ml bottle PO SCH ×2 (13:00→18:00)
--- NOTE | 2023-04-16 18:00 | NUR ---
pt refused VS
--- NOTE | 2023-04-16 18:17 | NUR ---
Problems reprioritized. Patient report given, questions answered & plan of care reviewed with CELIA Otoole.
[2023-04-16] MEDS: tamsulosin 0.4mg capsule PO SCH (20:44)
[2023-04-16 22:00] VITALS: BP 146/71; PULSE 77; RESP 20; TEMP 98.7; O2SAT 92
[2023-04-17] MEDS: hydrALAZINE 25 MG tablet PO SCH ×3 (01:30→16:10)
[2023-04-17 06:00] VITALS: BP 152/82; PULSE 94; RESP 18; TEMP 99.2; O2SAT 92
--- NOTE | 2023-04-17 06:24 | NUR ---
Report to Charisma YANG
[2023-04-17 06:27] LABS: BASOPHILS % (AUTO) 0.5 % (0-1); EOSINOPHILS # (AUTO) 0.1 X10'3 (0-0.9); EOSINOPHILS % (AUTO) 0.9 % (0-6); HEMATOCRIT 29.8 % (42.0-52.0); HEMOGLOBIN 10.2 g/dl (14.0-17.9); LYMPHOCYTES # (AUTO) 0.7 X10'3 (1.1-4.8); LYMPHOCYTES % (AUTO) 11.1 % (21-51); MEAN CORPUSCULAR HEMOGLOBIN 28.5 PG (27.0-31.0); MEAN CORPUSCULAR HGB CONC 34.4 g/dL (33.0-36.5); MEAN CORPUSCULAR VOLUME 82.9 FL (78-98); MEAN PLATELET VOLUME 7.7 FL (7.4-10.4); MONOCYTES # (AUTO) 0.7 X10'3 (0-0.9); MONOCYTES % (AUTO) 10.7 % (2-12); NEUTROPHILS # (AUTO) 4.9 X10'3 (1.8-7.7); NEUTROPHILS % (AUTO) 76.8 % (42-75); PLATELET COUNT 199 X10'3 (140-440); RED BLOOD COUNT 3.59 X10'6 (4.70-6.10); RED CELL DISTRIBUTION WIDTH 15.8 % (11.5-14.5); WHITE BLOOD COUNT 6.4 X10'3 (4.5-11.0)
--- NOTE | 2023-04-17 06:33 | NUR ---
Patient in room ORTHO 4009. I have received report from MIGUEL A Thayer and had the opportunity to ask questions and assume patient care.
[2023-04-17 06:48] LABS: ALANINE AMINOTRANSFERASE 24 U/L (12-78); ALBUMIN 1.8 G/DL (3.4-5.0); ALBUMIN/GLOBULIN RATIO 0.5 (1.1-1.5); ALKALINE PHOSPHATASE 57 IU/L (46-116); ANION GAP 9 (8-16); ASPARTATE AMINO TRANSFERASE 27 U/L (10-37); BILIRUBIN,TOTAL 0.5 MG/DL (0.1-1.0); BLOOD UREA NITROGEN 15 MG/DL (7-18); BUN/CREATININE RATIO 19.7 (10.0-20.0); CALCIUM 7.9 MG/DL (8.5-10.1); CHLORIDE 102 MMOL/L (99-107); CREATININE 0.76 MG/DL (0.60-1.10); GLUCOSE 96 MG/DL (70-104); POTASSIUM 3.8 MMOL/L (3.5-5.1); SODIUM 135 MMOL/L (135-145); TOTAL PROTEIN 5.4 G/DL (6.4-8.2); eCRCL 89 ML/MIN; eGFR > 90 ML/MIN
[2023-04-17] MEDS: enoxaparin 40mg/0.4ml syringe SUBCUT SCH (07:20)
[2023-04-17] MEDS: amLODIPine 5mg tablet PO SCH (07:21)
[2023-04-17] MEDS: folic acid 1mg tablet PO SCH (07:23)
[2023-04-17] MEDS: thiamine 100mg tablet PO SCH (07:23)
[2023-04-17] MEDS: HYDROcodone/acetaminophen 5mg/325mg tablet PO PRN ×2 (07:23→16:11)
[2023-04-17] MEDS: lisinopril 10 MG tablet PO SCH ×2 (07:23→21:50)
[2023-04-17] MEDS: lactose-reduced food (Ensure Enlive) - 237ml bottle PO SCH ×3 (07:23→21:52)
[2023-04-17] MEDS: CefTRIAXone/D5W-Rocephin 1gm 50 ML IV SCH (07:24)
[2023-04-17 10:00] VITALS: BP 143/62; RESP 18; TEMP 99.1; O2SAT 92
[2023-04-17 18:00] VITALS: BP 147/59; PULSE 85; RESP 16; TEMP 98.4; O2SAT 95
--- NOTE | 2023-04-17 18:48 | NUR ---
Problems reprioritized. Patient report given, questions answered & plan of care reviewed with CELIA Barajas.
--- NOTE | 2023-04-17 18:50 | NUR ---
Patient in room ORTHO 4009. I have received report from KARSON YANG and had the opportunity to ask questions and assume patient care.
[2023-04-17 20:00] VITALS: RESP 16; O2SAT 95
[2023-04-17] MEDS: tamsulosin 0.4mg capsule PO SCH (21:49)
[2023-04-17 22:00] VITALS: BP 141/84; PULSE 75; RESP 18; TEMP 98.9; O2SAT 96
[2023-04-18] MEDS: hydrALAZINE 25 MG tablet PO SCH ×3 (00:38→17:05)
[2023-04-18 06:00] VITALS: BP 139/62; PULSE 63; RESP 17; TEMP 97.9; O2SAT 94
--- NOTE | 2023-04-18 06:30 | NUR ---
Problems reprioritized. Patient report given, questions answered & plan of care reviewed with TYM RN.
[2023-04-18] MEDS: thiamine 100mg tablet PO SCH (07:58)
[2023-04-18] MEDS: cyanocobalamin 500mcg tablet PO SCH (07:58)
[2023-04-18] MEDS: folic acid 1mg tablet PO SCH (07:58)
[2023-04-18] MEDS: amLODIPine 5mg tablet PO SCH (08:00)
[2023-04-18] MEDS: lactose-reduced food (Ensure Enlive) - 237ml bottle PO SCH ×3 (08:00→18:06)
[2023-04-18] MEDS: enoxaparin 40mg/0.4ml syringe SUBCUT SCH (08:01)
[2023-04-18] MEDS: lisinopril 10 MG tablet PO SCH ×2 (08:01→20:25)
--- NOTE | 2023-04-18 09:51 | NUR ---
Patient in room ORTHO 4009. I have received report from alexandr strange rn and had the opportunity to ask questions and assume patient care.
[2023-04-18 10:00] VITALS: BP 117/66; PULSE 71; RESP 16; TEMP 98.6; O2SAT 95
[2023-04-18 17:00] VITALS: BP 126/81
[2023-04-18] MEDS: magnesium hydroxide 30ml (MOM) UD suspension PO PRN (17:35)
[2023-04-18 18:00] VITALS: BP 154/84; PULSE 67; RESP 16; TEMP 98.4; O2SAT 98
--- NOTE | 2023-04-18 18:53 | NUR ---
Problems reprioritized. Patient report given, questions answered & plan of care reviewed with alexandr strange rn.
[2023-04-18 20:00] VITALS: RESP 18; O2SAT 95
[2023-04-18] MEDS: tamsulosin 0.4mg capsule PO SCH (20:24)
[2023-04-18] MEDS: HYDROcodone/acetaminophen 5mg/325mg tablet PO PRN (20:25)
[2023-04-18 22:00] VITALS: BP 153/69; PULSE 63; RESP 20; TEMP 98.7; O2SAT 96
[2023-04-19] MEDS: hydrALAZINE 25 MG tablet PO SCH ×2 (01:00→08:49)
[2023-04-19 06:00] VITALS: BP 143/67; PULSE 66; RESP 18; TEMP 97.6; O2SAT 94
--- NOTE | 2023-04-19 06:20 | NUR ---
Problems reprioritized. Patient report given, questions answered & plan of care reviewed with TYM RN.
--- NOTE | 2023-04-19 06:40 | NUR ---
Patient in room ORTHO 4009. I have received report from NANCY CRUZ RN and had the opportunity to ask questions and assume patient care.
[2023-04-19] MEDS: lactose-reduced food (Ensure Enlive) - 237ml bottle PO SCH ×2 (08:00→13:09)
[2023-04-19 08:23] VITALS: RESP 16; O2SAT 96
[2023-04-19] MEDS: folic acid 1mg tablet PO SCH (08:50)
[2023-04-19] MEDS: amLODIPine 5mg tablet PO SCH (08:51)
[2023-04-19] MEDS: thiamine 100mg tablet PO SCH (08:51)
[2023-04-19] MEDS: cyanocobalamin 500mcg tablet PO SCH (08:52)
[2023-04-19] MEDS: lisinopril 10 MG tablet PO SCH (08:53)
[2023-04-19] MEDS: enoxaparin 40mg/0.4ml syringe SUBCUT SCH (08:55)
[2023-04-19 10:00] VITALS: BP 131/61; PULSE 66; RESP 16; TEMP 97.4; O2SAT 93
[2023-04-19] MEDS ORDERED: thiamine tablet PO (11:04)
[2023-04-19] MEDS ORDERED: HYDR-3964 PO (11:04)
[2023-04-19] MEDS ORDERED: tamsulosin capsule PO (11:04)
[2023-04-19] MEDS: magnesium hydroxide 30ml (MOM) UD suspension PO PRN (12:43)
--- NOTE | 2023-04-19 14:41 | NUR ---
pt is stable for dc, iv is dc and cannula is intact, gave pt a shower before he left, all belongings were taken, no meds in pharmacy, and report was called to Sarah at [facility], pt was wheeled down in a wheelchair by [facility] personnel and left in [facility].
== END 2023-04-19 14:15 | DRG 871 ==
LOC: ER 11:13 → EDBEDREQTM 15:52 → EDBEDREQSVC 15:52 → ED HOLD 15:55 → EDBEDREQ 04-13 08:54 → ORTHO 4S 04-13 10:25
PROVIDERS: ADMIT Internal Medicine; ATTEND Internal Medicine
DX: A41.9 Sepsis, unspecified organism (principal); J18.9 Pneumonia, unspecified organism; N17.0 Acute kidney failure with tubular necrosis; N39.0 Urinary tract infection, site not specified; Z59.00 Homelessness unspecified; F10.239 Alcohol dependence with withdrawal, unspecified; F19.939 Other psychoactive substance use, unspecified with withdrawal, unspecified; E86.1 Hypovolemia; F17.210 Nicotine dependence, cigarettes, uncomplicated; Y90.9 Presence of alcohol in blood, level not specified; Z20.822 Contact with and (suspected) exposure to COVID-19; E53.8 Deficiency of other specified B group vitamins; E87.6 Hypokalemia; I10 Essential (primary) hypertension; R29.6 Repeated falls; I25.10 Atherosclerotic heart disease of native coronary artery without angina pectoris; I25.2 Old myocardial infarction; Z93.1 Gastrostomy status
CPT/HCPCS: 36415; 70450; 71045; 76770; 80053; 81001; 82948; 83605; 84145; 85025; 87040; 87081; 87811; 93005; 97110; 97116; 97161; 97530; 99285; A4314; A4349; A6213; G0378; J0696; J1650; J2060; J3411; J3490; J7030

== ENCOUNTER 2024-01-15 18:14 | Emergency (ER) | payer MEDICARE ==
[~2024-01-15] VITALS: Ht 182.9 cm; Wt 77.7 kg
[~2024-01-15 18:14] MED LIST changes: +HYDR-3964 PO; -HYDR-4383 PO; -HYDR25TA4 PO; -LISI5TAB22 PO; +NO HOME MEDS; +tamsulosin capsule PO; +thiamine tablet PO
[2024-01-15 18:18] VITALS: TEMP 99.6
[2024-01-15 18:52] LABS: BASOPHILS % (AUTO) 0.2 % (0-1); EOSINOPHILS % (AUTO) 0 % (0-6); HEMATOCRIT 39.6 % (42.0-52.0); LYMPHOCYTES # (AUTO) 0.5 X10'3 (1.1-4.8); LYMPHOCYTES % (AUTO) 2.9 % (21-51); MEAN CORPUSCULAR HEMOGLOBIN 26.7 PG (27.0-31.0); MEAN CORPUSCULAR HGB CONC 32.8 g/dL (33.0-36.5); MEAN CORPUSCULAR VOLUME 81.5 FL (78-98); MEAN PLATELET VOLUME 7.2 FL (7.4-10.4); NEUTROPHILS % (AUTO) 90.9 % (42-75); PLATELET COUNT 143 X10'3 (140-440); RED BLOOD COUNT 4.86 X10'6 (4.70-6.10); RED CELL DISTRIBUTION WIDTH 14.9 % (11.5-14.5); WHITE BLOOD COUNT 16.5 X10'3 (4.5-11.0)
[2024-01-15] MEDS: clopidogrel 300mg tablet PO ONE (19:06)
[2024-01-15 19:11] LABS: ALBUMIN 3.7 G/DL (3.4-5.0); ANION GAP 9 (8-16); BLOOD UREA NITROGEN 16 MG/DL (7-18); CALCIUM 8.7 MG/DL (8.5-10.1); CHLORIDE 103 MMOL/L (99-107); CREATININE 1.23 MG/DL (0.60-1.10); GLUCOSE 128 MG/DL (70-104); POTASSIUM 3.6 MMOL/L (3.5-5.1); PRO BRAIN NATRIURETIC PEPTIDE 1814 PG/ML (0-450); SODIUM 138 MMOL/L (135-145); TOTAL CARBON DIOXIDE 26.2 MMOL/L (24-32); eCRCL 54 ML/MIN; eGFR 57 ML/MIN
[2024-01-15 19:32] LABS: BILIRUBIN,URINE NEGATIVE (Neg); CLARITY,URINE CLEAR (Clear); COLOR,URINE YELLOW (Yellow); GLUCOSE, URINE NEGATIVE (Neg); KETONES,URINE NEGATIVE (Neg); LEUKOCYTE ESTERASE ,URINE NEGATIVE (Neg); NITRITES, URINE NEGATIVE (Neg); OCCULT BLOOD,URINE NEGATIVE (Neg); PH,URINE 5.5 (4.8-8.0); PROTEIN,URINE TRACE mg/dl (Neg); UROBILINOGEN,URINE 0.2 E.U/dL (0.2-1.0)
[2024-01-15 19:33] LABS: UA COLLECTION TYPE CLN CATCH MIDSTREAM
[2024-01-15 19:58] LABS: HYALINE CASTS 0-3 /LPF (NEGATIVE); MUCUS STRANDS MODERATE /LPF (Neg); SQUAMOUS EPITHELIAL CELL,UR FEW /LPF (FEW)
[2024-01-15 19:59] LABS: BACTERIA,URINE FEW /HPF (Neg); RBC,URINE 0-2 /HPF (0-2); WBC,URINE 0-4 /HPF (0-4)
[2024-01-15] MEDS: normal saline 1000ml 1,000 ML IV ONE ×2 (20:14→20:55)
[2024-01-16 04:07] VITALS: BP 148/81; PULSE 79; RESP 18; O2SAT 95
== END 2024-01-16 04:19 | disposition home or self-care (01) ==
LOC: ER 18:15
DX: R55 Syncope and collapse (principal); I10 Essential (primary) hypertension; I25.2 Old myocardial infarction; R41.0 Disorientation, unspecified; F10.90 Alcohol use, unspecified, uncomplicated; Z98.890 Other specified postprocedural states; Z59.00 Homelessness unspecified; Z79.899 Other long term (current) drug therapy; Z86.73 Personal history of transient ischemic attack (TIA), and cerebral infarction without residual deficits
CPT/HCPCS: 36415; 71045; 80048; 81001; 82948; 83880; 84484; 85025; 93005; 96360; 96361; 99285; J7030

== ENCOUNTER 2025-02-22 09:39 | Emergency (ER) | payer MEDICARE ==
[~2025-02-22] VITALS: Ht 182.9 cm; Wt 70.5 kg
--- NOTE | 2025-02-22 10:31 | Physician Documentation ---
History of Present Illness General Chief Complaint: Weakness Stated Complaint: WEAKNESS Time Seen by MD: 10:31 Primary Medical Doctor: NONE Mode of Arrival: EMS History of Present Illness Initial Comments The patient is a 79-year-old male who states he recently use some methamphetamine and was seen at [facility] for weakness, the patient was discharged from [facility] and then he became weak and fell to the ground. Patient denies any injury from the fall. The patient complains of feeling strange. And weak. Patient denies any fevers chills nausea or vomiting patient denies any chest pain. Patient denies any shortness of breath Medication Reconciliation Allergies: Coded Allergies: No Known Allergies (Unverified , 02/22/25) Scheduled Lisinopril (Lisinopril), 1 TAB PO DAILY [tamsulosin capsule], 0.4 MG PO HS [thiamine tablet], 100 MG PO DAILY Scheduled PRN Hydrocodone Bit/Acetaminophen (Hydrocodon-Acetaminophen 5-325), 1 TAB PO Q4H PRN for MODERATE PAIN 4-6 Miscellaneous Medications Home Med List (No Home Medications), (Reported) Past Medical History Past Medical History: CVA/TIA/Stroke, Hypertension, Myocardial Infarction Past Surgical History: heart valve surgery Smoking: Greater than 1 pack/day Alcohol Use: Alcoholic Drug Use: none Lives with: Other Lives In: Home, Homeless Review of Systems All Other Systems at this time: Reviewed and Negative Physical Exam Physical Exam Vital Signs: Temperature: 97.9, Source: Oral, Heart Rate: 74, Respiratory Rate: 11, BP: 196/88, Pulse Oximetry: 100, Weight: 70.450 Physical Exam VITALS: Reviewed and as above. GENERAL: Alert, no apparent distress. HEENT: Normocephalic, atraumatic, PERRL, EOMI, dry mucosa, no erythema RESPIRATORY: Lungs clear, normal breath sounds, no respiratory distress. CHEST: No accessory muscle use, no retractions CV: Regular rate, rhythm, no edema, no murmur, No: JVD GI: Soft, non-tender, bowels sounds present, no rebound, guarding, or rigidity BACK: No CVA tenderness, or swelling MUSCULOSKELETAL No deformities, no edema SKIN: Warm and dry, no rash NEURO: Oriented x4, patient has 4-5 strength in the right upper extremity and he has an unsteady gait. PSYCH: Normal mood and affect, no agitation Progress Results/Orders Results/Orders Orders - OHLMAKENNA ALLRED MD Page Hospitalist (02/22/25 14:05) Fill Out Med Reconciliation (02/22/25 14:05) Ct Head (02/22/25 14:07) Completed Orders - MAKENNA GODINEZ MD Cbc/Diff (02/22/25 10:39) CMP (02/22/25 10:39) MG (02/22/25 10:39) Normal Saline 1000ml (0.9% Sodium Chlori (02/22/25 10:45) Electrocardiogram (02/22/25 ) Hs Troponin I W Calculations (02/22/25 11:27) Procalcitonin (02/22/25 11:59) Metoprolol Tartrate Tablet (Lopressor Ta (02/22/25 12:25) Clonidine Tablet (Catapres Tablet) (02/22/25 13:20) Ct Head (02/22/25 14:07) Ua W/Microscopic, Cult If Ind (02/22/25 14:12) Vital Signs 02/22/25 02/22/25 02/22/25 02/22/25 09:54 10:04 11:01 11:28 Temp 97.9 Pulse 74 63 66 Resp 12 11 14 13 B/P (MAP) 196/88 228/96 (140) 197/92 (127) Pulse Ox 100 92 99 O2 Flow Rate 0 0 02/22/25 02/22/25 02/22/25 02/22/25 12:29 12:33 12:38 13:28 Temp 98.0 Pulse 65 65 61 Resp 17 18 B/P (MAP) 204/102 (136) 200/95 (130) Pulse Ox 100 97 98 O2 Delivery Room Air* O2 Flow Rate 0 0 0 FiO2 21 02/22/25 02/22/25 02/22/25 14:09 14:55 15:15 Temp 97.9 Pulse 49 46 46 Resp 16 20 B/P (MAP) 182/80 (114) 172/71 (104) 158/67 (97) Pulse Ox 99 99 99 O2 Flow Rate 0 0 0 Laboratory Tests Test 02/22/25 10:54 02/22/25 14:12 White Blood Count 12.0 H Red Blood Count 4.48 L Hemoglobin 12.7 L Hematocrit 37.1 L Mean Corpuscular Volume 82.8 Mean Corpuscular Hemoglobin 28.2 Mean Corpuscular Hemoglobin Concent 34.1 Red Cell Distribution Width 15.5 H Platelet Count 141 Mean Platelet Volume 8.5 Neutrophils (%) (Auto) 83.6 H Lymphocytes (%) (Auto) 7.3 L Monocytes (%) (Auto) 8.4 Eosinophils (%) (Auto) 0.2 Basophils (%) (Auto) 0.5 Neutrophils # (Auto) 10.0 H Lymphocytes # (Auto) 0.9 L Monocytes # (Auto) 1.0 H Eosinophils # (Auto) 0.0 Basophils # (Auto) 0.1 CBC Comment Sodium Level 142 Potassium Level 4.2 Chloride Level 104 Carbon Dioxide Level 27.6 Anion Gap 10 Blood Urea Nitrogen 30 H Creatinine 1.18 H Estimated GFR/1.73 m2 60 BUN/Creatinine Ratio 25.4 H Glucose Level 106 H Calcium Level 8.8 Magnesium Level 2.3 Total Bilirubin 1.6 H Aspartate Amino Transf (AST/SGOT) 33 Alanine Aminotransferase (ALT/SGPT) 34 Alkaline Phosphatase 75 Troponin I High Sensitivity 23 Total Protein 8.0 Albumin 4.1 Globulin 3.9 Albumin/Globulin Ratio 1.1 Procalcitonin < 0.05 Chemistry Comments Urine Specimen Description Non-specified Urine Color Yellow Urine Clarity Clear Urine pH 6.0 Urine Specific [place] 1.020 Urine Protein Negative Urine Glucose (UA) Negative Urine Ketones 15 H Urine Occult Blood Small Urine Nitrite Negative Urine Bilirubin Negative Urine Urobilinogen 1.0 Urine Leukocyte Esterase Negative Urine RBC 0-2 Urine WBC None seen Urine Squamous Epithelial Cells None seen Urine Bacteria None seen Urine Culture Indicated Not ind Volume Urine Centrifuged 10 ml Urine Comment EKG/XRAY/CT/US/VASC/MRI CT : Impression Institution : [facility] Accession No. : [id number] Patient : ARRON Collier Creator : Dictator : Housing Project Manager : Auto Air Conditioning Installer : MARIFER NICHOLS Approver2 : Study : CT HEAD Study Date : 02/22/2025 14:11:45 Report Date : [address] [place], [place] - [address] CAT SCAN Patient: ABILIO HELLER Medical Record: [id number] [facility] : 1945, Age: 79 Sex: Male Location: ER Patient Status: [facility] ER Service Date/Time: 02/22/251406 Ordering Physician: MAKENNA GODINEZ MD Exam: CT HEAD CT CT HEAD INDICATION: falls COMPARISON: CT CT HEAD on DOS: 04/12/23 TECHNIQUE: CT of the head without intravenous contrast. RADIATION DOSE: CTDIvol: 65 mGy, DLP: 1094 mGy*cm FINDINGS: 1.1 cm hyperdensity is seen in the right frontal lobe which may reflect i ntraparenchymal hematoma. 0.5 cm hyperdensity is seen in the left frontal lobe which may reflect intraparenchymal hematoma There is also a 1.1 cm intraparenchymal hematoma in the left basal ganglia near the lateral ventricle. The ventricles, sulci and cisterns are age appropriate. The pablo-white differentiation is intact. The visualized paranasal sinuses and mastoid air cells are clear. The surrounding soft tissues and osseous structures are unremarkable. IMPRESSION: 1.1 cm hyperdensity is seen in the right frontal lobe which may reflect intraparenchymal hematoma. 0.5 cm hyperdensity is seen in the left frontal lobe which may reflect intraparenchymal hematoma 1.1 cm intraparenchymal hematoma is seen in the left basal ganglia near the lateral ventricle. Critical findings discussed with Dr. Godinez by Dr. Nichols via phone on 02/22/2025 02:35 PM. Electronically Signed by:MARIFER NICHOLS MD Date Time: 02/22/25 1437 Dictated by: MARIFER NICHOLS MD Dictation date and time: 02/22/25 1408 Primary Care Provider: NO PRIMARY CARE PROVIDER cc: MAKENNA GODINEZ MD Medical Decision Making Findings Patient's 12 lead EKG was interpreted as a sinus rhythm with a normal axis with a rate of 64 the patient does have Q-waves in V1 and V2 and nonspecific ST abnormalities in V4 V5 and V6 interpreted agitation is an abnormal EKG time of the EKG was 1056. Patient received IV fluids in the emergency department for dehydration he was continually hypertensive while in the emergency room he got a 50 mg of metoprolol and then I followed that with 0.1 mg of clonidine due to the patient's recent falls and unsteadiness on his feet the decision was made to get a CT of the head which shows punctate bleeds in the right frontal left frontal and in the left basal ganglia reason region on re-examine the patient has 4/5 strength in the right upper arm as well as 4/5 strength in the right leg possibly secondary to the intraparenchymal an intercerebral bleeding. Case was discussed with the emergency physician at [facility] who has accepted the patient in transfer the patient will be transferred to [facility] the patient has required 45 minutes of critical care time. Departure Impression: Primary Impression: Dehydration Additional Impression: Accelerated hypertension Referrals: NO PRIMARY CARE PROVIDER (PCP) Prescriptions Lisinopril (Lisinopril) 20 Mg Tablet 1 TAB PO DAILY for 30 Days, #30 TAB Prov: MAKENNA GODINEZ MD 02/22/25 Critical Care Note Total Time (mins): 45 Critical Care Note The very real possibility of a deterioration of this patient's condition required the highest level of my preparedness for sudden, emergent intervention. I provided critical care services, which included medication orders, frequent reevaluations of the patient's condition and response to treatment, ordering and reviewing test results, and discussing the case with various consultants. Excludes time spent performing separately billable procedures. The critical care time associated with the care of the patient was 45 minutes. Signature Scribe Signature: no scribe Attestation: The note accurately reflects work and decisions made by me.Makenna Godinez MD 02/24/25 04:50 MAKENNA GODINEZ MD Feb 22, 2025 10:31
[2025-02-22] MEDS: normal saline 1000ML IV soln IVB ONE (10:57)
--- NOTE | 2025-02-22 10:58 | ELECTROCARDIOGRAPH REPORT ---
[facility] Test Date: 2025-02-22 Test Time: 10:56:44 Pat Name: ABILIO HELLER Department: [facility]-ER Patient ID: [facility]-[id number] Room: Gender: M Special Educator: : 1945 Requested By: MAKENNA ABDALLA Order Number: [id number] Reading MD: Measurements Intervals [place] Rate: 64 P: 37 CA: 217 QRS: 45 QRSD: 84 T: 254 QT: 413 QTc: 426 Interpretive Statements Sinus rhythm Borderline prolonged CA interval Anteroseptal infarct, old Repol abnrm suggests ischemia, anterolateral Baseline wander in lead(s) I,II,aVR Please click the below link to view image of tracing.
[2025-02-22 11:23] LABS: MEAN PLATELET VOLUME 8.5 FL (7.4-10.4); RED CELL DISTRIBUTION WIDTH 15.5 % (11.5-14.5)
[2025-02-22 11:36] LABS: CREATININE 1.18 MG/DL (0.60-1.10); TOTAL CARBON DIOXIDE 27.6 MMOL/L (24-32); eCRCL 51 ML/MIN; eGFR 60 ML/MIN
[2025-02-22] MEDS ORDERED: LISI20TA28 PO (13:09)
[2025-02-22 14:23] LABS: LEUKOCYTE ESTERASE ,URINE NEGATIVE (Neg); NITRITES, URINE NEGATIVE (Neg); OCCULT BLOOD,URINE SMALL (Neg)
[2025-02-22 14:25] LABS: UA COLLECTION TYPE NON-SPECIFIED
[2025-02-22 14:28] LABS: SQUAMOUS EPITHELIAL CELL,UR NONE SEEN /LPF (FEW)
--- NOTE | 2025-02-22 14:40 | RADIOLOGY REPORT ---
CT CT HEAD INDICATION: falls COMPARISON: CT CT HEAD on DOS: 04/12/23 TECHNIQUE: CT of the head without intravenous contrast. RADIATION DOSE: CTDIvol: 65 mGy, DLP: 1094 mGy*cm FINDINGS: 1.1 cm hyperdensity is seen in the right frontal lobe which may reflect intraparenchymal hematoma. 0.5 cm hyperdensity is seen in the left frontal lobe which may reflect intraparenchymal hematoma There is also a 1.1 cm intraparenchymal hematoma in the left basal ganglia near the lateral ventricle . The ventricles, sulci and cisterns are age appropriate. The pablo-white differentiation is intact. The visualized paranasal sinuses and mastoid air cells are clear. The surrounding soft tissues and o sseous structures are unremarkable. IMPRESSION: 1.1 cm hyperdensity is seen in the right frontal lobe which may reflect intraparenchymal hematoma. 0.5 cm hyperdensity is seen in the left frontal lobe which may reflect intraparenchymal hematoma 1.1 cm intraparenchymal hematoma is seen in the left basal ganglia near the lateral ventricle. Critical findings discussed with Dr. Godinez by Dr. Nichols via phone on 02/22/2025 02:35 PM.
[2025-02-22 14:55] VITALS: TEMP 97.9
[2025-02-22 15:15] VITALS: BP 158/67; PULSE 46; RESP 20; O2SAT 99
== END 2025-02-22 15:29 | disposition home or self-care (01) ==
LOC: ER 09:39
DX: E86.0 Dehydration (principal); I10 Essential (primary) hypertension; R51.9 Headache, unspecified; I25.2 Old myocardial infarction; Z86.73 Personal history of transient ischemic attack (TIA), and cerebral infarction without residual deficits; W19.XXXA Unspecified fall, initial encounter; Y93.89 Activity, other specified; Y92.89 Other specified places as the place of occurrence of the external cause; Y99.8 Other external cause status
CPT/HCPCS: 36415; 70450; 80053; 81001; 83735; 84145; 84484; 85025; 93005; 96360; 96361; 99285; J7030